=== PATIENT | female | born 1935 | race Caucasian/White ===

== ENCOUNTER 2019-01-13 06:52 | Day surgery (SDC) | payer MEDICARE, OTHER ==
[~2019-01-13] VITALS: Ht 165.1 cm; Wt 58.8 kg
[~2019-01-13 06:52] MED LIST: AMLO-145 PO; HYDR12.58 PO; IBUP-1542 PO; LOSA100T15 PO; METO-335 PO; PANT40TA3 PO; PROM25SU40 PR; RANI150T5 PO; SUCR1TAB56 PO; TRAM50TA2 PO; [UNRECOGNIZED DRUG - OTHER] TD
[2019-01-13] MEDS ORDERED: ZANTAC (07:41)
[2019-01-13] MEDS ORDERED: ACETAMINOPHEN (07:41)
[2019-01-13] MEDS ORDERED: LIDOCAINE (07:41)
[2019-01-13] MEDS ORDERED: DOC Q LACE (07:41)
[2019-01-13] MEDS ORDERED: COLACE (07:41)
[2019-01-13] MEDS ORDERED: LIBRAX (07:41)
[2019-01-13] MEDS ORDERED: ZYRTEC (07:41)
[2019-01-13] MEDS ORDERED: [UNRECOGNIZED DRUG - OTHER] (07:41)
[2019-01-13 07:50] VITALS: Ht 165.1 cm; Wt 58.8 kg
[2019-01-13] MEDS ORDERED: LIDOCAINE 2% (SDV) 5 ML INJ ONE (08:35)
[2019-01-13] MEDS ORDERED: PROPOFOL 60 ML ONE (08:35)
--- NOTE | 2019-01-13 08:54 | PREAC ---
Date/Time of Note Date/Time of Note DATE: 01/13/19 TIME: 08:49 Anesthesia Eval and Record Evaluation Time Pre-Procedure Interview DATE: 01/13/19 TIME: 08:49 Age 83 Sex female NPO: 8 hrs Preoperative diagnosis abdominal pain, colon screening Planned procedure EGD, Colonoscopy Past Medical History Past Medical History: Includes Cardio: HTN Musculoskeletal: Osteoarthritis Surgery & Anesthesia Issues No known issue Meds Anticoagulation: No Beta Chantal within 24 hr: Yes Reported Medications [Patches Lidocaine] No Conflict Check 01/13/19 [Zyrtec] No Conflict Check 01/13/19 [Zantac] No Conflict Check 01/13/19 [Maalox Lidocaine] No Conflict Check 01/13/19 [Librax] No Conflict Check 01/13/19 [Doc Q Lace] No Conflict Check 01/13/19 [Colace] No Conflict Check 01/13/19 [Acetaminophen] No Conflict Check 01/13/19 Metoprolol Succinate* (Toprol XL*) 25 Mg Tab.sr.24h, 25 MG PO DAILY 12/12/15 Hydrochlorothiazide* (Hydrochlorothiazide*) 12.5 Mg Tablet, 6.25 MG PO DAILY, #30 TAB 12/12/15 Pantoprazole* (Protonix*) 40 Mg Tablet.dr, 40 MG PO DAILY, TAB 01/31/15 Losartan Potassium* (Losartan Potassium*) 100 Mg Tablet, 100 MG PO DAILY, TAB 01/31/15 Ibuprofen* (Ibuprofen*) 600 Mg Tablet, 600 MG PO Q6H PRN for PAIN, TAB 01/31/15 Discontinued Reported Medications Amlodipine Besylate* (Amlodipine Besylate*) 5 Mg Tablet, 5 MG PO DAILY 12/12/15 Ranitidine Hcl* (Ranitidine Hcl*) 150 Mg Tablet, 150 MG PO Q12, #60 TAB 12/12/15 Oxybutynin* Patch (Oxytrol*) 3.9 Mg/24 Hr Patch.tdsw, 1 PATCH.BWK TD Q3D, PATCH 01/31/15 Discontinued Scripts Tramadol HCl (Tramadol HCl) 50 Mg Tablet, 50 MG PO Q4 PRN for PAIN, #20 TAB Prov:BRISSA SHELTON 12/12/15 Promethazine Hcl* (Phenergan* Supp) 25 Mg/Supp.rect Supp.rect, 25 MG NE Q6 PRN for NAUSEA AND/OR VOMITING, #10 SUPP.RECT Prov:BRISSA SHELTON 12/12/15 Sucralfate* (Carafate*) 1 Gm Tab, 1 GM PO QID, #60 TAB Prov:BRISSA SHELTON 12/12/15 Meds reviewed: Yes Allergies Coded Allergies: Penicillins (Verified Allergy, Mild, 01/13/19) morphine (Verified Allergy, Mild, 01/13/19) Allergies Reviewed: Yes Labs/Studies Labs Reviewed: Reviewed by anesthesiologist test: N/A Studies: ECG Pre-procedure Exam Last vitals BP:164/78, P:74, Spo2:100%, T:98,9 Airway: Adequate mouth opening, Adequate thyromental dist Mallampati: Mallampati II Teeth: Normal Lung: Normal Heart: Normal ASA Physical Status ASA physical status: 4 Emergency: None Planned Anesthetic General/MAC: MAC Planned Pain Management Parenteral pain med Pre-operative Attestations Prior to commencing anesthesia and surgery, the patient was re-evaluated, there was verification of: *The patient's identity *The results of appropriate recent lab work and preoperative vital signs *The above evaluation not changing prior to induction *Anesthetic plan, risk benefits, alternative and complications discussed with patient/family; questions answered; patient/family understands, accepts and wishes to proceed. JJ KOLB MD Jan 13, 2019 08:54
--- NOTE | 2019-01-13 09:10 | PAC ---
Date/Time of Note Date/Time of Note DATE: 01/13/19 TIME: 09:08 Post-Anesthesia Notes Post-Anesthesia Note Activity: WNL Respiratory function: WNL Cardiovascular function: WNL Mental status: Baseline Pain reasonably controlled: Yes Hydration appropriate: Yes Nausea/Vomiting absent: Yes Comments BP:117/67, P:74, Spo2:100%, T:98,8 JJ KOLB MD Jan 13, 2019 09:10
[2019-01-13 09:34] VITALS: BP 137/61; PULSE 64; RESP 12
== END 2019-01-13 11:42 | disposition home or self-care (01) ==
LOC: GIL 06:52
PROVIDERS: ATTEND Internal Medicine Gastroenterology
DX: Z12.11 Encounter for screening for malignant neoplasm of colon (principal); K64.4 Residual hemorrhoidal skin tags; K57.10 Diverticulosis of small intestine without perforation or abscess without bleeding; K29.50 Unspecified chronic gastritis without bleeding; I10 Essential (primary) hypertension
CPT/HCPCS: 43239; 88305; 88312; G0121